=== PATIENT | female | born 1950 | race Caucasian/White ===

== ENCOUNTER 2018-04-08 10:03 | Emergency (ER) | payer MEDICARE, OTHER ==
[~2018-04-08] VITALS: Ht 149.9 cm; Wt 60.8 kg
[2018-04-08 10:09] VITALS: BP 139/73
[2018-04-08 10:10] VITALS: BP 135/75
--- NOTE | 2018-04-08 10:41 | NUR ---
PATIENT AMBULATED TO BED 7.
--- NOTE | 2018-04-08 10:42 | NUR ---
BIB DAUGHTER WITH C/O INTERMITTENT VOMITING AND SARAH 10/28 X 3 WKS. VOMITED X 3 TODAY WITH DIZZINESS. DENIES ABDOMINAL PAIN OR DIARRHEA AT THIS TIME HX; DM, HTN, TRIPLE [place] 2012 RX; METFORMIN, ASA, LISINOPRIL, CARVEDILOL, GLIPIZIDE, RANEXA, FE, NITROGLYCERIN
[2018-04-08] MEDS ORDERED: ONDANSETRON 4 MG ODT PO ONE (11:15)
[2018-04-08] MEDS ORDERED: MECLIZINE 25 MG TAB PO ONE (11:20)
[2018-04-08 12:54] VITALS: BP 130/82
--- NOTE | 2018-04-08 12:54 | NUR ---
Patient discharged with v/s stable. Written and verbal after care instructions given and explained. Patient alert, oriented and verbalized understanding of instructions. Ambulatory with steady gait. All questions addressed prior to discharge. ID band removed. Patient advised to follow up with PMD. Rx of MECLIZINE 25MG AND ZOFRAN 4MG ODT given. Patient educated on indication of medication including possible reaction and side effects. Opportunity to ask questions provided and answered.
== END 2018-04-08 12:54 | disposition home or self-care (01) ==
LOC: MED 10:03
DX: R42 Dizziness and giddiness (principal); H72.92 Unspecified perforation of tympanic membrane, left ear; R11.10 Vomiting, unspecified; E11.9 Type 2 diabetes mellitus without complications; I10 Essential (primary) hypertension; I25.2 Old myocardial infarction
CPT/HCPCS: 93005; 99283; J8597; Q0162